=== PATIENT | male | born 1970 | race Asian ===

== ENCOUNTER 2017-07-12 17:44 | Inpatient (IN) | payer MEDICARE, MEDICAID ==
[~2017-07-12] VITALS: Ht 152.4 cm; Wt 50.5 kg
[2017-07-12] VITALS (8 sets, daily range): BP systolic 90–115; BP diastolic 63–76
[2017-07-12] MEDS ORDERED: SODIUM CHLORIDE 0.9% 1,000 ML IV ONE ×2 (18:00→19:15)
[2017-07-12 18:21] LABS: ANION GAP 9 mmol/L (8-16); CALCIUM, TOTAL 7.4 mg/dL (8.8-10.5); CARBON DIOXIDE 23 mmol/L (22-29); CHLORIDE 98 mmol/L (98-107); CREATININE 0.79 mg/dL (0.60-1.30); GLOMERULAR FILTR. RATE CALC > 60 mL/min (>60); GLUCOSE,RANDOM 104 mg/dL (70-110); POTASSIUM 3.7 mmol/L (3.5-5.1); SODIUM SERUM 130 mmol/L (136-145); UREA NITROGEN, BLOOD 15 mg/dL (7-18)
[2017-07-12 18:21] LABS: MEAN CORPUSCULAR HGB CONC 32.1 G/dL (31.0-37.0); MEAN CORPUSCULAR VOLUME 91 fL (80-100); PLATELET COUNT (AUTO) 77 K/uL (150-450); RED BLOOD CELL COUNT(AUTO) 1.76 MIL/uL (4.50-5.90); RED CELL DISTRIBUTION WIDTH 17.9 % (11.5-14.5)
[2017-07-12 18:24] LABS: HEMOGLOBIN 5.1 g/dL (13.5-17.5)
[2017-07-12 18:24] LABS: INR 1.2 (0.9-1.1); PROTHROMBIN TIME 12.6 SEC (9.4-11.6)
[2017-07-12 18:25] LABS: HEMATOCRIT 15.9 % (41-53)
[2017-07-12 18:31] LABS: ALANINE AMINOTRANSFERASE 66 U/L (12-78); ALBUMIN 1.8 g/dL (3.4-5.0); ALKALINE PHOSPHATASE 542 U/L (46-116); ASPARTATE AMINOTRANSFERASE 131 U/L (15-37); BILIRUBIN,TOTAL 0.8 mg/dL (0.1-1.0); CREATINE KINASE, TOTAL 63 U/L (39-308); LIPASE 366 U/L (73-393); TOTAL PROTEIN, SERUM 7.4 g/dL (6.4-8.2)
[2017-07-12 18:39] LABS: B-TYPE NATRIURETIC PEPTIDE 159 pg/mL (0-100)
[2017-07-12 19:20] LABS: APPEARANCE,URINE CLEAR (CLEAR); GLUCOSE, URINE (UA) NEGATIVE (NEGATIVE); KETONES,URINE NEGATIVE (NEGATIVE); LEUKOCYTE ESTERASE ,URINE TRACE (NEGATIVE); NITRATE,URINE NEGATIVE (NEGATIVE); OCCULT BLOOD,URINE NEGATIVE (NEGATIVE); PROTEIN,URINE POS 1+ (NEGATIVE)
[2017-07-12 19:31] LABS: BILIRUBIN,URINE PRELIM. POSITIVE (NEGATIVE)
[2017-07-12 19:39] LABS: INFLUENZA TYPE A NEGATIVE FOR TYPE A (NEGATIVE); INFLUENZA TYPE B NEGATIVE FOR TYPE B (NEGATIVE)
[2017-07-12 19:44] LABS: BAND NEUTROPHILS % (MANUAL) 4 % (1-5); LYMPHOCYTES % (MANUAL) 2 % (22-44); MONOCYTES % (MANUAL) 5 % (2-9); SEGMENTED NEUTROPHILS % 89 % (40-70)
[2017-07-12 19:45] LABS: PLATELET MORPHOLOGY COMMENT DECREASED
[2017-07-12 19:50] LABS: BACTERIA,URINE Rare /HPF (None Seen); RBC,URINE 0-2 /HPF (0-2); SQUAMOUS EPITHELIAL CELL,UR Few /LPF (None Seen)
[2017-07-12 20:17] LABS: LACTIC ACID 1.8 mmol/L (0.4-2.0)
[2017-07-12] MEDS ORDERED: CefTRIAXone SODIUM 1 GM in DEXTROSE 5%-WATER 10 ML IV ONE (20:30)
[2017-07-12] MEDS ORDERED: PANTOPRAZOLE SODIUM 40 MG/VIAL IVP ONE (20:30)
[2017-07-12] MEDS ORDERED: AZITHROMYCIN 500 MG/NS 250 ML IV ONE (20:30)
[2017-07-12] MEDS ORDERED: ACETAMINOPHEN 325 MG TABLET PO ONE (20:45)
[2017-07-12] MEDS ORDERED: ACETAMINOPHEN 325 MG TABLET PO PRN (21:00)
[2017-07-12] MEDS ORDERED: 0.9% SODIUM CHLORIDE 10 ML SYRINGE IVP PRN (21:00)
[2017-07-12] MEDS ORDERED: SODIUM CHLORIDE 0.9% 1,000 ML IV SCH (22:18)
[2017-07-12] MEDS ORDERED: ALBUTEROL SULFATE 2.5 MG/0.5 ML NEB SOLUTION NEB PRN (22:30)
[2017-07-12] MEDS ORDERED: MAGNESIUM HYDROXIDE SUSPENSION 30 ML UDCUP PO PRN (22:30)
[2017-07-12] MEDS ORDERED: ONDANSETRON HCL 4 MG/2 ML VIAL IVP PRN (22:30)
[2017-07-12] MEDS ORDERED: BISACODYL 10 MG RECTAL RECTAL SUPPOSITORY PR PRN (22:30)
[2017-07-12] MEDS ORDERED: HYDROCODONE/ACETAMINOPHEN 5-325 MG TABLET PO PRN (22:30)
[2017-07-12] MEDS ORDERED: IPRATROPIUM BROMIDE 0.5 MG/2.5 ML NEB SOLUTION NEB PRN (22:30)
[2017-07-12] MEDS ORDERED: INFLUENZA VIRUS VACCINE QVS 2017-18 (3YR+)/PF 60 MCG/0.5 ML SYRINGE IM ONE (23:00)
[2017-07-12] MEDS ORDERED: PNEUMOCOCCAL VACCINE POLYVALENT 0.5 ML VIAL [PPSV23] IM ONE (23:00)
[2017-07-13] VITALS (13 sets, daily range): BP systolic 95–125; BP diastolic 59–88
[2017-07-13 05:52] LABS: BASOPHILS % (AUTO) 0.1 % (0.0-2.0); EOSINOPHILS % (AUTO) 0.1 % (1.0-6.0); HEMATOCRIT 24.3 % (41-53); HEMOGLOBIN 8.2 g/dL (13.5-17.5); LYMPHOCYTES # (AUTO) 0.1 K/uL (1.0-4.8); LYMPHOCYTES % (AUTO) 1.7 % (22.0-44.0); MEAN CORPUSCULAR HGB CONC 33.7 G/dL (31.0-37.0); MEAN CORPUSCULAR VOLUME 89 fL (80-100); MONOCYTES # (AUTO) 0.3 K/uL (0.1-1.0); MONOCYTES % (AUTO) 3.3 % (2.0-9.0); NEUTROPHILS # (AUTO) 8.1 K/uL (1.8-7.7); RED BLOOD CELL COUNT(AUTO) 2.73 MIL/uL (4.50-5.90); RED CELL DISTRIBUTION WIDTH 16.5 % (11.5-14.5)
[2017-07-13 06:20] LABS: NEUTROPHILS % (AUTO) 94.8 % (40.0-70.0)
[2017-07-13 06:27] LABS: ALANINE AMINOTRANSFERASE 57 U/L (12-78); ALBUMIN 1.3 g/dL (3.4-5.0); ALKALINE PHOSPHATASE 430 U/L (46-116); ANION GAP 6 mmol/L (8-16); ASPARTATE AMINOTRANSFERASE 105 U/L (15-37); BILIRUBIN,TOTAL 0.9 mg/dL (0.1-1.0); CALCIUM, TOTAL 6.7 mg/dL (8.8-10.5); CARBON DIOXIDE 22 mmol/L (22-29); CHLORIDE 103 mmol/L (98-107); CREATININE 0.81 mg/dL (0.60-1.30); GLOMERULAR FILTR. RATE CALC > 60 mL/min (>60); GLUCOSE,RANDOM 129 mg/dL (70-110); HDL CHOLESTEROL 6 mg/dL (40-60); POTASSIUM 3.7 mmol/L (3.5-5.1); SODIUM SERUM 131 mmol/L (136-145); THYROID STIMULATING HORMONE 1.95 uIU/mL (0.36-3.74); TOTAL PROTEIN, SERUM 5.8 g/dL (6.4-8.2); TRIGLYCERIDES 62 mg/dL (15-150); UREA NITROGEN, BLOOD 17 mg/dL (7-18)
[2017-07-13 06:57] LABS: CHOL/HDL RATIO 8.3 (4.2-7.3); CHOLESTEROL < 50 mg/dL (131-200); LDL CHOL (CALC.) 32 mg/dL (0-130)
[2017-07-13] MEDS ORDERED: CeFAZolin 1 GM/DEXTROSE 50 ML IV SCH (08:00)
[2017-07-13] MEDS: PANTOPRAZOLE SODIUM 40 MG DR TABLET PO SCH (08:11)
[2017-07-13 08:23] LABS: PLATELET COUNT (AUTO) 51 K/uL (150-450)
[2017-07-13] MEDS: CeFAZolin SODIUM 1 GM in DEXTROSE 5%-WATER 10 ML IV SCH ×2 (09:48→20:32)
[2017-07-13] MEDS: AZITHROMYCIN 500 MG/NS 250 ML IV SCH (20:23)
[2017-07-13] MEDS: CLOTRIMAZOLE 10 MG TROCHE PO SCH (23:22)
[2017-07-13] MEDS: ACETAMINOPHEN 325 MG TABLET PO PRN (23:33)
[2017-07-14] MEDS: CefTRIAXone SODIUM 1 GM in DEXTROSE 5%-WATER 10 ML IV SCH (02:49)
[2017-07-14] MEDS: CLOTRIMAZOLE 10 MG TROCHE PO SCH ×5 (05:06→21:14)
[2017-07-14 05:31] VITALS: BP 131/89
[2017-07-14 06:21] LABS: BASOPHILS % (AUTO) 0.1 % (0.0-2.0); EOSINOPHILS % (AUTO) 0.9 % (1.0-6.0); HEMATOCRIT 23.6 % (41-53); HEMOGLOBIN 8.1 g/dL (13.5-17.5); LYMPHOCYTES # (AUTO) 0.3 K/uL (1.0-4.8); LYMPHOCYTES % (AUTO) 4.1 % (22.0-44.0); MEAN CORPUSCULAR HEMOGLOBIN 30.7 pg (26.0-34.0); MEAN CORPUSCULAR HGB CONC 34.3 G/dL (31.0-37.0); MEAN CORPUSCULAR VOLUME 89 fL (80-100); MONOCYTES # (AUTO) 0.2 K/uL (0.1-1.0); MONOCYTES % (AUTO) 2.3 % (2.0-9.0); NEUTROPHILS # (AUTO) 6.3 K/uL (1.8-7.7); PLATELET COUNT (AUTO) 40 K/uL (150-450); RED BLOOD CELL COUNT(AUTO) 2.64 MIL/uL (4.50-5.90); RED CELL DISTRIBUTION WIDTH 16.5 % (11.5-14.5)
[2017-07-14 06:29] LABS: ANION GAP 10 mmol/L (8-16); CALCIUM, TOTAL 6.9 mg/dL (8.8-10.5); CARBON DIOXIDE 19 mmol/L (22-29); CHLORIDE 103 mmol/L (98-107); CREATININE 0.65 mg/dL (0.60-1.30); GLOMERULAR FILTR. RATE CALC > 60 mL/min (>60); GLUCOSE,RANDOM 101 mg/dL (70-110); POTASSIUM 3.8 mmol/L (3.5-5.1); SODIUM SERUM 132 mmol/L (136-145); UREA NITROGEN, BLOOD 14 mg/dL (7-18)
[2017-07-14 06:41] LABS: NEUTROPHILS % (AUTO) 92.6 % (40.0-70.0)
[2017-07-14 07:30] VITALS: BP 99/61
[2017-07-14] MEDS: PANTOPRAZOLE SODIUM 40 MG DR TABLET PO SCH (08:07)
[2017-07-14 11:25] VITALS: BP 109/69
[2017-07-14] MEDS ORDERED: IOVERSOL 320 MG/ML 100 ML VIAL ONE (12:34)
[2017-07-14] MEDS ORDERED: SODIUM CHLORIDE 0.9% 100 ML ONE (12:34)
[2017-07-14 13:32] LABS: C.DIFF GDH ANTIGEN, Stool Negative (Negative); C.DIFF TOXINS A&B, Stool Negative (Negative)
[2017-07-14] MEDS: CHOLECALCIFEROL (VIT D3) 1,000 UNITS TABLET PO SCH ×2 (15:41→21:13)
[2017-07-14] MEDS: MULTIVITAMINS WITH MINERALS, THERAPEUTIC TABLET PO SCH (15:41)
[2017-07-14 16:18] VITALS: BP 107/60
[2017-07-14 20:06] VITALS: BP 102/62
[2017-07-14] MEDS: MIRTAZAPINE 15 MG TABLET PO SCH (21:14)
[2017-07-14] MEDS: AZITHROMYCIN 500 MG/NS 250 ML IV SCH (21:15)
[2017-07-14 23:31] VITALS: BP 112/72
[2017-07-15] MEDS: CefTRIAXone SODIUM 1 GM in DEXTROSE 5%-WATER 10 ML IV SCH (02:14)
[2017-07-15] MEDS: CLOTRIMAZOLE 10 MG TROCHE PO SCH ×5 (05:17→22:19)
[2017-07-15 05:29] VITALS: BP 124/91
[2017-07-15 07:36] VITALS: BP 100/61
[2017-07-15] MEDS: MULTIVITAMINS WITH MINERALS, THERAPEUTIC TABLET PO SCH (08:16)
[2017-07-15] MEDS: SULFAMETHOX/TRIMETH DS 800-160 MG/TABLET PO SCH (08:16)
[2017-07-15] MEDS: PANTOPRAZOLE SODIUM 40 MG DR TABLET PO SCH (08:17)
[2017-07-15] MEDS: CHOLECALCIFEROL (VIT D3) 1,000 UNITS TABLET PO SCH ×2 (08:17→20:11)
[2017-07-15] MEDS: FUROSEMIDE 20 MG/2 ML VIAL IVP SCH (10:55)
[2017-07-15 11:47] VITALS: BP 109/73
[2017-07-15 15:35] VITALS: BP 107/68
[2017-07-15] MEDS: AZITHROMYCIN 500 MG/NS 250 ML IV SCH (20:11)
[2017-07-15] MEDS: MIRTAZAPINE 15 MG TABLET PO SCH (20:11)
[2017-07-15 20:15] VITALS: BP 103/73
[2017-07-15] MEDS: DOXYCYCLINE 100 MG CAPSULE PO SCH (22:18)
[2017-07-15 23:50] VITALS: BP 118/77
[2017-07-16] MEDS: ACETAMINOPHEN 325 MG TABLET PO PRN ×2 (02:49→23:52)
[2017-07-16] MEDS: CefTRIAXone SODIUM 1 GM in DEXTROSE 5%-WATER 10 ML IV SCH (02:49)
[2017-07-16 05:30] VITALS: BP_SYST 112; BP_SYST 116; BP_DIAS 63; BP_DIAS 72
[2017-07-16] MEDS: CLOTRIMAZOLE 10 MG TROCHE PO SCH ×5 (06:02→21:03)
[2017-07-16] MEDS: MULTIVITAMINS WITH MINERALS, THERAPEUTIC TABLET PO SCH (09:32)
[2017-07-16] MEDS: SULFAMETHOX/TRIMETH DS 800-160 MG/TABLET PO SCH (09:32)
[2017-07-16] MEDS: CHOLECALCIFEROL (VIT D3) 1,000 UNITS TABLET PO SCH ×2 (09:32→21:03)
[2017-07-16] MEDS: FUROSEMIDE 20 MG/2 ML VIAL IVP SCH (09:32)
[2017-07-16] MEDS: PANTOPRAZOLE SODIUM 40 MG DR TABLET PO SCH (09:32)
[2017-07-16] MEDS: DOXYCYCLINE 100 MG CAPSULE PO SCH ×2 (09:32→21:03)
[2017-07-16 11:40] VITALS: BP 100/86
[2017-07-16 15:20] VITALS: BP 108/73
[2017-07-16 19:37] VITALS: BP 107/72
[2017-07-16] MEDS: MIRTAZAPINE 15 MG TABLET PO SCH (21:03)
[2017-07-16] MEDS: ZOLPIDEM TARTRATE 5 MG TABLET PO PRN (21:03)
[2017-07-16 23:37] VITALS: BP 123/56
[2017-07-17] VITALS (20 sets, daily range): BP systolic 96–124; BP diastolic 57–89
[2017-07-17] MEDS: CefTRIAXone SODIUM 1 GM in DEXTROSE 5%-WATER 10 ML IV SCH (02:40)
[2017-07-17 02:52] LABS: APPEARANCE,URINE CLOUDY (CLEAR); BILIRUBIN,URINE NEGATIVE (NEGATIVE); GLUCOSE, URINE (UA) NEGATIVE (NEGATIVE); KETONES,URINE NEGATIVE (NEGATIVE); LEUKOCYTE ESTERASE ,URINE NEGATIVE (NEGATIVE); NITRATE,URINE NEGATIVE (NEGATIVE); OCCULT BLOOD,URINE NEGATIVE (NEGATIVE); PROTEIN,URINE NEGATIVE (NEGATIVE)
[2017-07-17] MEDS: CLOTRIMAZOLE 10 MG TROCHE PO SCH ×5 (05:30→21:00)
[2017-07-17] MEDS: DOXYCYCLINE 100 MG CAPSULE PO SCH ×2 (08:02→21:00)
[2017-07-17] MEDS: FUROSEMIDE 20 MG/2 ML VIAL IVP SCH (08:02)
[2017-07-17] MEDS: PANTOPRAZOLE SODIUM 40 MG DR TABLET PO SCH (08:02)
[2017-07-17] MEDS: MULTIVITAMINS WITH MINERALS, THERAPEUTIC TABLET PO SCH (08:02)
[2017-07-17] MEDS: SULFAMETHOX/TRIMETH DS 800-160 MG/TABLET PO SCH (08:02)
[2017-07-17] MEDS: CHOLECALCIFEROL (VIT D3) 1,000 UNITS TABLET PO SCH ×2 (08:02→21:00)
[2017-07-17] MEDS ORDERED: SODIUM CHLORIDE 0.9% 1,000 ML IV ONE (08:30)
[2017-07-17] MEDS ORDERED: SODIUM CHLORIDE 0.9% 250 ML IV ONE (08:30)
[2017-07-17] MEDS: ALBUMIN HUMAN 25%-12.5GM/50ML 50 ML IV SCH ×2 (09:00→21:01)
[2017-07-17 09:28] LABS: BASOPHILS % (AUTO) 0.6 % (0.0-2.0); EOSINOPHILS % (AUTO) 1.4 % (1.0-6.0); LYMPHOCYTES # (AUTO) 0.2 K/uL (1.0-4.8); LYMPHOCYTES % (AUTO) 3.3 % (22.0-44.0); MEAN CORPUSCULAR HEMOGLOBIN 29.6 pg (26.0-34.0); MEAN CORPUSCULAR VOLUME 90 fL (80-100); MONOCYTES # (AUTO) 0.2 K/uL (0.1-1.0); NEUTROPHILS # (AUTO) 4.8 K/uL (1.8-7.7); PLATELET COUNT (AUTO) 43 K/uL (150-450); RED BLOOD CELL COUNT(AUTO) 1.97 MIL/uL (4.50-5.90)
[2017-07-17 09:38] LABS: ANION GAP 9 mmol/L (8-16); CALCIUM, TOTAL 7.1 mg/dL (8.8-10.5); CARBON DIOXIDE 21 mmol/L (22-29); CHLORIDE 100 mmol/L (98-107); CREATININE 0.91 mg/dL (0.60-1.30); GLOMERULAR FILTR. RATE CALC > 60 mL/min (>60); GLUCOSE,RANDOM 157 mg/dL (70-110); POTASSIUM 4.2 mmol/L (3.5-5.1); SODIUM SERUM 130 mmol/L (136-145); UREA NITROGEN, BLOOD 18 mg/dL (7-18)
[2017-07-17 09:43] LABS: HEMATOCRIT 17.6 % (41-53); HEMOGLOBIN 5.8 g/dL (13.5-17.5); NEUTROPHILS % (AUTO) 90.7 % (40.0-70.0)
[2017-07-17] MEDS ORDERED: MAGNESIUM SULFATE 4 GM/WATER 100 ML IV PRN (10:00)
[2017-07-17] MEDS ORDERED: MAGNESIUM OXIDE 400 MG TABLET PO ONE (10:00)
[2017-07-17] MEDS ORDERED: MAGNESIUM SULFATE 2 GM in DEXTROSE 5%-WATER 50 ML IV PRN (10:00)
[2017-07-17] MEDS ORDERED: MAGNESIUM OXIDE 400 MG TABLET PO PRN (10:00)
[2017-07-17] MEDS: ACETAMINOPHEN 325 MG TABLET PO PRN ×2 (15:21→21:01)
[2017-07-17] MEDS ORDERED: DiphenhydrAMINE HCL 50 MG/ML VIAL IVP ONE (16:00)
[2017-07-17] MEDS: MIRTAZAPINE 15 MG TABLET PO SCH (21:00)
[2017-07-18] VITALS (7 sets, daily range): BP systolic 100–123; BP diastolic 63–85
[2017-07-18 00:06] LABS: OVA AND PARASITES EXAM Final report
[2017-07-18] MEDS: CefTRIAXone SODIUM 1 GM in DEXTROSE 5%-WATER 10 ML IV SCH (02:38)
[2017-07-18] MEDS: CLOTRIMAZOLE 10 MG TROCHE PO SCH ×5 (05:48→21:05)
[2017-07-18 06:55] LABS: BASOPHILS % (AUTO) 0.3 % (0.0-2.0); EOSINOPHILS % (AUTO) 1.9 % (1.0-6.0); HEMOGLOBIN 9.1 g/dL (13.5-17.5); LYMPHOCYTES # (AUTO) 0.3 K/uL (1.0-4.8); LYMPHOCYTES % (AUTO) 4.9 % (22.0-44.0); MEAN CORPUSCULAR HEMOGLOBIN 30.2 pg (26.0-34.0); MEAN CORPUSCULAR HGB CONC 33.5 G/dL (31.0-37.0); MEAN CORPUSCULAR VOLUME 90 fL (80-100); MONOCYTES # (AUTO) 0.2 K/uL (0.1-1.0); MONOCYTES % (AUTO) 3.1 % (2.0-9.0); NEUTROPHILS # (AUTO) 6.3 K/uL (1.8-7.7); PLATELET COUNT (AUTO) 51 K/uL (150-450); RED CELL DISTRIBUTION WIDTH 17.7 % (11.5-14.5)
[2017-07-18 07:07] LABS: ALANINE AMINOTRANSFERASE 98 U/L (12-78); ALBUMIN 1.8 g/dL (3.4-5.0); ALKALINE PHOSPHATASE 951 U/L (46-116); ANION GAP 7 mmol/L (8-16); ASPARTATE AMINOTRANSFERASE 178 U/L (15-37); BILIRUBIN,TOTAL 1.1 mg/dL (0.1-1.0); CARBON DIOXIDE 25 mmol/L (22-29); CHLORIDE 101 mmol/L (98-107); GLOMERULAR FILTR. RATE CALC > 60 mL/min (>60); GLUCOSE,RANDOM 85 mg/dL (70-110); POTASSIUM 4.3 mmol/L (3.5-5.1); SODIUM SERUM 133 mmol/L (136-145); TOTAL PROTEIN, SERUM 7.1 g/dL (6.4-8.2); UREA NITROGEN, BLOOD 16 mg/dL (7-18)
[2017-07-18 07:14] LABS: NEUTROPHILS % (AUTO) 89.8 % (40.0-70.0)
[2017-07-18] MEDS: DOXYCYCLINE 100 MG CAPSULE PO SCH (08:39)
[2017-07-18] MEDS: CHOLECALCIFEROL (VIT D3) 1,000 UNITS TABLET PO SCH ×2 (08:39→21:13)
[2017-07-18] MEDS: ACETAMINOPHEN 325 MG TABLET PO PRN ×2 (08:39→18:26)
[2017-07-18] MEDS: SULFAMETHOX/TRIMETH DS 800-160 MG/TABLET PO SCH (08:39)
[2017-07-18] MEDS: PANTOPRAZOLE SODIUM 40 MG DR TABLET PO SCH (08:39)
[2017-07-18] MEDS: MULTIVITAMINS WITH MINERALS, THERAPEUTIC TABLET PO SCH (08:39)
[2017-07-18] MEDS: ALBUMIN HUMAN 25%-12.5GM/50ML 50 ML IV SCH ×2 (08:39→21:08)
[2017-07-18 14:11] LABS: LEGIONELLA PNEUMO AG URINE Negative (Negative); ORGANISM ID Not indicated.; S PNEUMO SOURCE Urine; STREP PNEUMONIAE AG URINE Negative (Negative); STREP.PNEUMO BODY FLUID CULT. Not Indicated
[2017-07-18] MEDS: RIFABUTIN 150 MG CAPSULE PO SCH (21:06)
[2017-07-18] MEDS: MIRTAZAPINE 15 MG TABLET PO SCH (21:06)
[2017-07-18] MEDS: ISONIAZID 300 MG TABLET PO SCH (21:07)
[2017-07-18] MEDS: ETHAMBUTOL HCL 400 MG TABLET PO SCH (21:07)
[2017-07-18] MEDS: PYRIDOXINE HCL 50 MG TABLET PO SCH (21:08)
[2017-07-18] MEDS: PYRAZINAMIDE 500 MG TABLET PO SCH (21:08)
[2017-07-19 04:06] VITALS: BP 96/58
[2017-07-19] MEDS: CLOTRIMAZOLE 10 MG TROCHE PO SCH ×5 (05:15→21:36)
[2017-07-19 07:52] VITALS: BP 94/65
[2017-07-19 08:01] LABS: BASOPHILS % (AUTO) 0.4 % (0.0-2.0); EOSINOPHILS % (AUTO) 1.1 % (1.0-6.0); HEMATOCRIT 22.5 % (41-53); HEMOGLOBIN 7.7 g/dL (13.5-17.5); LYMPHOCYTES # (AUTO) 0.5 K/uL (1.0-4.8); LYMPHOCYTES % (AUTO) 9.8 % (22.0-44.0); MEAN CORPUSCULAR HEMOGLOBIN 30.7 pg (26.0-34.0); MEAN CORPUSCULAR HGB CONC 34.1 G/dL (31.0-37.0); MEAN CORPUSCULAR VOLUME 90 fL (80-100); MONOCYTES # (AUTO) 0.3 K/uL (0.1-1.0); MONOCYTES % (AUTO) 5.7 % (2.0-9.0); NEUTROPHILS # (AUTO) 4.4 K/uL (1.8-7.7); PLATELET COUNT (AUTO) 53 K/uL (150-450); RED CELL DISTRIBUTION WIDTH 17.3 % (11.5-14.5)
[2017-07-19 08:30] LABS: ANION GAP 2 mmol/L (8-16); CALCIUM, TOTAL 8.1 mg/dL (8.8-10.5); CARBON DIOXIDE 29 mmol/L (22-29); CHLORIDE 101 mmol/L (98-107); CREATININE 0.72 mg/dL (0.60-1.30); GLOMERULAR FILTR. RATE CALC > 60 mL/min (>60); GLUCOSE,RANDOM 86 mg/dL (70-110); POTASSIUM 4.9 mmol/L (3.5-5.1); SODIUM SERUM 132 mmol/L (136-145); UREA NITROGEN, BLOOD 18 mg/dL (7-18)
[2017-07-19 08:36] LABS: ALANINE AMINOTRANSFERASE 84 U/L (12-78); ALBUMIN 1.9 g/dL (3.4-5.0); ALKALINE PHOSPHATASE 812 U/L (46-116); TOTAL PROTEIN, SERUM 6.6 g/dL (6.4-8.2)
[2017-07-19 08:47] LABS: ASPARTATE AMINOTRANSFERASE 155 U/L (15-37)
[2017-07-19] MEDS: PYRIDOXINE HCL 50 MG TABLET PO SCH (09:24)
[2017-07-19] MEDS: ETHAMBUTOL HCL 400 MG TABLET PO SCH (09:25)
[2017-07-19] MEDS: RIFABUTIN 150 MG CAPSULE PO SCH (09:25)
[2017-07-19] MEDS: SULFAMETHOX/TRIMETH DS 800-160 MG/TABLET PO SCH (09:26)
[2017-07-19] MEDS: PYRAZINAMIDE 500 MG TABLET PO SCH (09:26)
[2017-07-19] MEDS: PANTOPRAZOLE SODIUM 40 MG DR TABLET PO SCH (09:26)
[2017-07-19] MEDS: MULTIVITAMINS WITH MINERALS, THERAPEUTIC TABLET PO SCH (09:26)
[2017-07-19] MEDS: ISONIAZID 300 MG TABLET PO SCH (09:27)
[2017-07-19] MEDS: CHOLECALCIFEROL (VIT D3) 1,000 UNITS TABLET PO SCH ×2 (09:27→20:51)
[2017-07-19] MEDS: ALBUMIN HUMAN 25%-12.5GM/50ML 50 ML IV SCH ×2 (10:08→20:52)
[2017-07-19 10:15] LABS: PLATELET MORPHOLOGY COMMENT DECREASED
[2017-07-19 11:17] VITALS: BP 111/79
[2017-07-19 16:03] VITALS: BP 116/66
[2017-07-19 20:03] VITALS: BP 99/57
[2017-07-19] MEDS: MIRTAZAPINE 15 MG TABLET PO SCH (20:51)
[2017-07-20] VITALS (14 sets, daily range): BP systolic 93–117; BP diastolic 63–74
[2017-07-20] MEDS: CLOTRIMAZOLE 10 MG TROCHE PO SCH ×5 (05:42→22:02)
[2017-07-20] MEDS: ACETAMINOPHEN 325 MG TABLET PO PRN ×2 (05:42→23:52)
[2017-07-20 06:24] LABS: BASOPHILS % (AUTO) 0.3 % (0.0-2.0); EOSINOPHILS % (AUTO) 1.1 % (1.0-6.0); LYMPHOCYTES # (AUTO) 0.2 K/uL (1.0-4.8); LYMPHOCYTES % (AUTO) 3.7 % (22.0-44.0); MEAN CORPUSCULAR HEMOGLOBIN 31.7 pg (26.0-34.0); MEAN CORPUSCULAR VOLUME 91 fL (80-100); MONOCYTES # (AUTO) 0.3 K/uL (0.1-1.0); MONOCYTES % (AUTO) 4.2 % (2.0-9.0); NEUTROPHILS # (AUTO) 5.9 K/uL (1.8-7.7); PLATELET COUNT (AUTO) 53 K/uL (150-450); RED BLOOD CELL COUNT(AUTO) 2.19 MIL/uL (4.50-5.90); RED CELL DISTRIBUTION WIDTH 17.5 % (11.5-14.5)
[2017-07-20 06:49] LABS: ALANINE AMINOTRANSFERASE 78 U/L (12-78); ALKALINE PHOSPHATASE 798 U/L (46-116); ANION GAP 7 mmol/L (8-16); ASPARTATE AMINOTRANSFERASE 138 U/L (15-37); CALCIUM, TOTAL 8.5 mg/dL (8.8-10.5); CARBON DIOXIDE 27 mmol/L (22-29); CHLORIDE 95 mmol/L (98-107); CREATININE 0.79 mg/dL (0.60-1.30); GLOMERULAR FILTR. RATE CALC > 60 mL/min (>60); GLUCOSE,RANDOM 84 mg/dL (70-110); POTASSIUM 4.6 mmol/L (3.5-5.1); SODIUM SERUM 129 mmol/L (136-145); TOTAL PROTEIN, SERUM 6.5 g/dL (6.4-8.2); UREA NITROGEN, BLOOD 19 mg/dL (7-18)
[2017-07-20 07:15] LABS: HEMATOCRIT 19.9 % (41-53); HEMOGLOBIN 6.9 g/dL (13.5-17.5); NEUTROPHILS % (AUTO) 90.7 % (40.0-70.0)
[2017-07-20] MEDS ORDERED: SODIUM CHLORIDE 0.9% 250 ML IV ONE (08:01)
[2017-07-20] MEDS: PANTOPRAZOLE SODIUM 40 MG DR TABLET PO SCH (08:48)
[2017-07-20] MEDS: MULTIVITAMINS WITH MINERALS, THERAPEUTIC TABLET PO SCH (08:49)
[2017-07-20] MEDS: CHOLECALCIFEROL (VIT D3) 1,000 UNITS TABLET PO SCH ×2 (08:49→22:02)
[2017-07-20] MEDS: ETHAMBUTOL HCL 400 MG TABLET PO SCH (08:49)
[2017-07-20] MEDS: ISONIAZID 300 MG TABLET PO SCH (08:49)
[2017-07-20] MEDS: SULFAMETHOX/TRIMETH DS 800-160 MG/TABLET PO SCH (08:49)
[2017-07-20] MEDS: PYRAZINAMIDE 500 MG TABLET PO SCH (08:49)
[2017-07-20] MEDS: RIFABUTIN 150 MG CAPSULE PO SCH (08:50)
[2017-07-20] MEDS: PYRIDOXINE HCL 50 MG TABLET PO SCH (08:50)
[2017-07-20] MEDS: ALBUMIN HUMAN 25%-12.5GM/50ML 50 ML IV SCH ×2 (09:00→22:03)
[2017-07-20] MEDS: MIRTAZAPINE 15 MG TABLET PO SCH (22:02)
[2017-07-21] MEDS: ZOLPIDEM TARTRATE 5 MG TABLET PO PRN (00:08)
[2017-07-21] MEDS ORDERED: SODIUM CHLORIDE 0.9% 500 ML IV ONE (05:35)
[2017-07-21] MEDS: CLOTRIMAZOLE 10 MG TROCHE PO SCH ×5 (05:43→21:43)
[2017-07-21] MEDS: ACETAMINOPHEN 325 MG TABLET PO PRN ×2 (05:43→18:00)
[2017-07-21 05:45] VITALS: BP 120/74
[2017-07-21 07:04] LABS: BASOPHILS % (AUTO) 0.2 % (0.0-2.0); HEMATOCRIT 29.7 % (41-53); HEMOGLOBIN 9.9 g/dL (13.5-17.5); LYMPHOCYTES # (AUTO) 0.5 K/uL (1.0-4.8); LYMPHOCYTES % (AUTO) 6.3 % (22.0-44.0); MEAN CORPUSCULAR HEMOGLOBIN 30.1 pg (26.0-34.0); MEAN CORPUSCULAR HGB CONC 33.2 G/dL (31.0-37.0); MEAN CORPUSCULAR VOLUME 91 fL (80-100); MONOCYTES # (AUTO) 0.2 K/uL (0.1-1.0); MONOCYTES % (AUTO) 2.5 % (2.0-9.0); NEUTROPHILS # (AUTO) 7.7 K/uL (1.8-7.7); RED BLOOD CELL COUNT(AUTO) 3.28 MIL/uL (4.50-5.90); RED CELL DISTRIBUTION WIDTH 17.1 % (11.5-14.5)
[2017-07-21 07:09] LABS: ANION GAP 7 mmol/L (8-16); CALCIUM, TOTAL 8.6 mg/dL (8.8-10.5); CARBON DIOXIDE 27 mmol/L (22-29); CHLORIDE 97 mmol/L (98-107); CREATININE 0.79 mg/dL (0.60-1.30); GLOMERULAR FILTR. RATE CALC > 60 mL/min (>60); GLUCOSE,RANDOM 90 mg/dL (70-110); POTASSIUM 4.9 mmol/L (3.5-5.1); SODIUM SERUM 131 mmol/L (136-145); UREA NITROGEN, BLOOD 18 mg/dL (7-18)
[2017-07-21 07:55] VITALS: BP 99/57
[2017-07-21] MEDS: CHOLECALCIFEROL (VIT D3) 1,000 UNITS TABLET PO SCH ×2 (08:56→21:43)
[2017-07-21] MEDS: MULTIVITAMINS WITH MINERALS, THERAPEUTIC TABLET PO SCH (08:57)
[2017-07-21] MEDS: ISONIAZID 300 MG TABLET PO SCH (08:57)
[2017-07-21] MEDS: SULFAMETHOX/TRIMETH DS 800-160 MG/TABLET PO SCH (08:57)
[2017-07-21] MEDS: PANTOPRAZOLE SODIUM 40 MG DR TABLET PO SCH (08:57)
[2017-07-21] MEDS: PYRIDOXINE HCL 50 MG TABLET PO SCH (08:57)
[2017-07-21] MEDS: PYRAZINAMIDE 500 MG TABLET PO SCH (08:57)
[2017-07-21] MEDS: RIFABUTIN 150 MG CAPSULE PO SCH (08:57)
[2017-07-21] MEDS: ALBUMIN HUMAN 25%-12.5GM/50ML 50 ML IV SCH ×2 (08:59→21:43)
[2017-07-21] MEDS: ETHAMBUTOL HCL 400 MG TABLET PO SCH (09:03)
[2017-07-21 09:45] LABS: PLATELET COUNT (AUTO) 59 K/uL (150-450)
[2017-07-21 12:12] LABS: CYTOMEGALOVIRUS QNT LOG10 4.197
[2017-07-21 12:22] VITALS: BP 110/59
[2017-07-21 15:11] LABS: APPEARANCE,URINE CLEAR (CLEAR); BILIRUBIN,URINE NEGATIVE (NEGATIVE); GLUCOSE, URINE (UA) NEGATIVE (NEGATIVE); KETONES,URINE NEGATIVE (NEGATIVE); LEUKOCYTE ESTERASE ,URINE NEGATIVE (NEGATIVE); NITRATE,URINE NEGATIVE (NEGATIVE); OCCULT BLOOD,URINE NEGATIVE (NEGATIVE); PROTEIN,URINE NEGATIVE (NEGATIVE)
[2017-07-21 16:33] VITALS: BP 106/68
[2017-07-21 20:07] VITALS: BP 84/60
[2017-07-21] MEDS: MIRTAZAPINE 15 MG TABLET PO SCH (21:43)
[2017-07-22 00:32] VITALS: BP 115/78
[2017-07-22 04:36] VITALS: BP 96/67
[2017-07-22] MEDS: CLOTRIMAZOLE 10 MG TROCHE PO SCH ×4 (06:07→17:52)
[2017-07-22] MEDS: ALBUMIN HUMAN 25%-12.5GM/50ML 50 ML IV SCH (08:13)
[2017-07-22] MEDS: RIFABUTIN 150 MG CAPSULE PO SCH (08:14)
[2017-07-22] MEDS: PANTOPRAZOLE SODIUM 40 MG DR TABLET PO SCH (08:14)
[2017-07-22] MEDS: CHOLECALCIFEROL (VIT D3) 1,000 UNITS TABLET PO SCH (08:14)
[2017-07-22] MEDS: ETHAMBUTOL HCL 400 MG TABLET PO SCH (08:14)
[2017-07-22] MEDS: SULFAMETHOX/TRIMETH DS 800-160 MG/TABLET PO SCH (08:14)
[2017-07-22] MEDS: MULTIVITAMINS WITH MINERALS, THERAPEUTIC TABLET PO SCH (08:14)
[2017-07-22] MEDS: ISONIAZID 300 MG TABLET PO SCH (08:14)
[2017-07-22] MEDS: PYRIDOXINE HCL 50 MG TABLET PO SCH (08:15)
[2017-07-22] MEDS: PYRAZINAMIDE 500 MG TABLET PO SCH (08:15)
[2017-07-22 08:16] VITALS: BP 119/71
[2017-07-22 12:04] VITALS: BP 103/60
[2017-07-22] MEDS: ACETAMINOPHEN 325 MG TABLET PO PRN (12:21)
[2017-07-22 16:44] VITALS: BP 106/71
== END 2017-07-22 19:20 | disposition short-term general hospital (02) | DRG 974 ==
LOC: EMS 17:46 → 5N 20:53
PROVIDERS: ADMIT Internal Medicine; ATTEND Internal Medicine
PROC: 30233N1 Transfusion of Nonautologous Red Blood Cells into Peripheral Vein, Percutaneous Approach (ICD-10-PCS; principal; 2017-07-12)
PROC: 3E0234Z Introduction of Serum, Toxoid and Vaccine into Muscle, Percutaneous Approach (ICD-10-PCS; 2017-07-13)
DX: A41.9 Sepsis, unspecified organism (principal); E43 Unspecified severe protein-calorie malnutrition; B20 Human immunodeficiency virus [HIV] disease; A15.0 Tuberculosis of lung; J18.9 Pneumonia, unspecified organism; D69.6 Thrombocytopenia, unspecified; B37.0 Candidal stomatitis; F33.2 Major depressive disorder, recurrent severe without psychotic features; E87.1 Hypo-osmolality and hyponatremia; I31.3 Pericardial effusion (noninflammatory); I42.9 Cardiomyopathy, unspecified; R45.851 Suicidal ideations; R16.1 Splenomegaly, not elsewhere classified; F12.90 Cannabis use, unspecified, uncomplicated; F17.200 Nicotine dependence, unspecified, uncomplicated; R79.89 Other specified abnormal findings of blood chemistry; E55.9 Vitamin D deficiency, unspecified; Z59.0 Homelessness; Z91.14 Patient's other noncompliance with medication regimen; Z91.19 Patient's noncompliance with other medical treatment and regimen; Z23 Encounter for immunization
CPT/HCPCS: 36430; 71260; 72193; 74160; 76700; 78278; 80074; 82270; 82271; 82306; 83605; 83615; 83735; 84145; 84443; 86171; 86361; 86403; 86480; 86592; 86631; 86632; 86644; 86645; 86738; 86777; 86778; 86850; 86880; 86900; 86901; 86920; 87015; 87040; 87070; 87106; 87149; 87177; 87186; 87205; 87206; 87324; 87449; 87497; 87536; 87804; 87899; 90471; 93005; 93306; 93308; 93970; 96361; 96365; 96368; 96375; 99285; C9113; J0456; J0690; J0696; J1200; J1940; J7030; J7040; J7050; J7060; P9016; P9047